=== PATIENT | female | born 1935 | race Caucasian/White ===

== ENCOUNTER → 2017-03-02 | Outpatient (CLI) | payer OTHER, MEDICARE ==
[~2017-03-02] MED LIST: ATEN-173 PO; ATOR-22 PO; CALCTAB7 PO; CLTP PO; ESCI10TA17 PO; FLUT0.15 NAE; INDA1TAB3 PO; LISI-461 PO; LISI10TA PO
--- NOTE | 2017-03-02 16:40 | MAMMOGRAPHY REPORT ---
BILATERAL DIGITAL SCREENING MAMMOGRAM WITH CAD: 03/02/2017 CLINICAL HISTORY: Routine screening. Patient has no complaints. TECHNIQUE: Bilateral CC and MLO views were obtained. Current study was also evaluated with a Comput er Aided Detection (CAD) system. COMPARISON: Comparison is made to exams dated: 02/24/2016 mammogram, 12/09/2009 mammogram, 02/22/2015 mammogram, 12/21/2013 mammogram, 12/01/2004 mammogram - [facility], and 12/02/2006. BREAST COMPOSITION: There are scattered areas of fibroglandular density in both breasts. FINDINGS: There are stable scattered punctate calcifications in both breasts. No new suspicious m ass, architectural distortion or cluster of microcalcifications is seen. IMPRESSION: ACR BI-RADS CATEGORY 2: BENIGN There is no mammographic evidence of malignancy. A 1 year screening mammogram is recommended. The p atient will receive written notification of the results. Approximately 10% of breast cancers are not detected with mammography. A negative mammographic repor t should not delay biopsy if a clinically suggestive mass is present. Brynn Kilpatrick M.D. ay/:03/02/2017 15:44:28 Animal Nutrition Consultant: Yodit DURON(Summer)([place]), [facility] letter sent: Normal 1/2 BI-RADS Code: ACR BI-RADS Category 2: Benign
== END | disposition home or self-care (01) ==
LOC: C.MAMM 11:05
PROVIDERS: ATTEND Internal Medicine
DX: Z12.31 Encounter for screening mammogram for malignant neoplasm of breast (principal)

== ENCOUNTER 2017-06-04 13:42 | Emergency (ER) | payer OTHER, MEDICARE ==
[~2017-06-04] VITALS: Ht 156.2 cm; Wt 52.2 kg
[~2017-06-04 13:42] MED LIST changes: -CALCTAB7 PO; -ESCI10TA17 PO; -FLUT0.15 NAE; -LISI-461 PO; -LISI10TA PO
[2017-06-04 13:58] VITALS: TEMP 36.6; Ht 156.2 cm; Wt 52.2 kg
[2017-06-04] MEDS ORDERED: SODIUM CHLORIDE 0.9% 1000ML 500 ML IV STA (14:47)
[2017-06-04 15:00] LABS: BASO % 0.5 %; BASO ABS # 0.04 K/uL (0-0.2); COMPLETE YES; HEMATOCRIT 39.8 % (37-47); IG% 0.1 %; LYMPH % 26.3 %; LYMPH ABS # 2.07 K/uL (1.2-3.4); MEAN CELL VOLUME 88.4 fL (80-100); MEAN CORPUSCULAR HEMOGLOBIN 28.9 pg (25-34); MEAN CORPUSCULAR HGB CONC 32.7 g/dl (32-36); MEAN PLATELET VOLUME 12.1 fL (7.4-10.4); MONO % 11.5 %; NEUT % 59.6 %; PLATELET COUNT 211 K/uL (130-400); WHITE BLOOD COUNT 7.88 K/uL (4.8-10.8)
[2017-06-04 15:07] LABS: BUN/CREATININE RATIO 21.4 (10-20); CALCIUM 9.2 mg/dl (8.5-10.1); CREATININE 1.1 mg/dl (0.60-1.20); POTASSIUM 3.9 mmol/L (3.5-5.1)
[2017-06-04 15:17] LABS: THYROID STIMULATING HORMONE 0.71 uIu/ml (0.300-4.500)
[2017-06-04] MEDS ORDERED: CALCTAB7 PO (15:22)
[2017-06-04] MEDS ORDERED: ESCI10TA17 PO (15:22)
[2017-06-04] MEDS ORDERED: FLUT0.15 NAE (15:22)
[2017-06-04] MEDS ORDERED: LISINOPRIL 10 MG TAB PO STA (15:31)
[2017-06-04] MEDS ORDERED: LISI10TA PO (16:02)
--- NOTE | 2017-06-04 16:09 | EMERGENCY ROOM VISIT NOTE ---
History Report prepared by Lynn: Mitch Sutton Under the Supervision of: Dr. Vic Thorne M.D. First contact with patient: 14:35 Chief Complaint: HYPERTENSION Stated Complaint: HIGH BLOOD PRESSURE,LOW PULSE,DOCTOR REFERRED History of Present Illness The patient is a 81 year old female who presents to the Emergency Room with complaints of persistent hypertension beginning last week. She states that she was at the ear doctor today who noticed that she had a high blood pressure and a low pulse. She states that she was seen by the ear doctor because she had been having a lot of trouble hearing. Per daughter, the patient was seen by her PCP last week for similar hearing problems and was found to have a systolic pressure of 208. 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 The patient has a history of hypertension and is on is currently on Atenolol. She states that her systolic blood pressure has been in the 150's this past week at home. She also complains of a headache which she describes as "dull". The patient denies any urinary symptoms. Source of History: patient, family (daughter) Onset: Last week Symptom Intensity: systolic pressure of 208 last week, consistently 150's over past week Quality: other (Hypertension) Timing: other (persistent) Associated Symptoms: + headache ("dull"), No urinary symptoms Review of Systems See HPI for pertinent positives & negatives. A total of 10 systems reviewed and were otherwise negative. Past Medical & Surgical Medical Problems: (1) H. pylori infection (2) HTN (hypertension) Surgical Problems: (1) H/O mastoidectomy Family History No pertinent family history stated. Social History Smoking Status: Never Smoker Marital Status: Housing Status: lives with significant other Occupation Status: retired Current/Historical Medications Scheduled Atenolol (Tenormin), 25 MG PO QPM Atorvastatin (Lipitor), 20 MG PO DAILY Calcium Carbonate-Vitamin D W/ (Caltrate 600 Plus), 2 TAB PO DAILY Escitalopram (Lexapro), 5 MG PO DAILY Lisinopril (Prinivil), 10 MG PO QD@08 Scheduled PRN Fluticasone Propionate (Nasal) (Flonase Allergy Relief), 2 SPRAY NICHOLE DAILY PRN for Nasal Congestion Allergies Coded Allergies: Amlodipine (Unverified Allergy, Mild, DIZZY, 1/2/11) Penicillins (Unverified Allergy, Unknown, HIVES, 01/28/16) Propoxyphene (Unverified Allergy, Unknown, nausea, 01/28/16) Physical Exam Vital Signs Date Time Temp Pulse Resp B/P (MAP) Pulse Ox O2 Delivery O2 Flow Rate FiO2 06/04/17 16:42 52 20 189/89 100 06/04/17 16:05 76 20 195/91 100 06/04/17 15:23 56 20 191/80 100 Room Air 06/04/17 14:16 58 06/04/17 13:58 36.6 105 18 205/94 97 Room Air Physical Exam GENERAL: Patient is in no acute distress. HEENT: No acute trauma, normocephalic atraumatic, mucous membranes moist, no nasal congestion, no scleral icterus. NECK: No stridor, no adenopathy, no meningismus, trachea is midline. LUNGS: Clear to auscultation bilaterally, no wheeze, no rhonchi, breath sounds equal. HEART: Without murmurs gallops or rubs, regular rate and rhythm. ABDOMEN: Soft, nontender, bowel sounds positive, no hernias, no peritonitis. EXTREMITIES: No cyanosis or edema, full range of motion of all the joints without pain or difficulty, no signs for acute trauma. NEUROLOGIC: Oriented x 3, no acute motor or sensory deficits, no focal weakness. No pronator drift or cerebellar dysfunction. SKIN: No rash, no jaundice, no diaphoresis. Medical Decision & Procedures Laboratory Results 06/04/17 14:12 Red Blood Count 4.50, Mean Corpuscular Volume 88.4, Mean Corpuscular Hemoglobin 28.9, Mean Corpuscular Hemoglobin Concent 32.7, Mean Platelet Volume 12.1, Neutrophils (%) (Auto) 59.6, Lymphocytes (%) (Auto) 26.3, Monocytes (%) (Auto) 11.5, Eosinophils (%) (Auto) 2.0, Basophils (%) (Auto) 0.5, Neutrophils # (Auto ) 4.69, Lymphocytes # (Auto) 2.07, Monocytes # (Auto) 0.91, Eosinophils # (Auto ) 0.16, Basophils # (Auto) 0.04 06/04/17 14:12 Test 06/04/17 14:12 White Blood Count 7.88 K/uL (4.8-10.8) Red Blood Count 4.50 M/uL (4.2-5.4) Hemoglobin 13.0 g/dL (12.0-16.0) Hematocrit 39.8 % (37-47) Mean Corpuscular Volume 88.4 fL (80-100) Mean Corpuscular Hemoglobin 28.9 pg (25-34) Mean Corpuscular Hemoglobin Concent 32.7 g/dl (32-36) Platelet Count 211 K/uL (130-400) Mean Platelet Volume 12.1 fL (7.4-10.4) Neutrophils (%) (Auto) 59.6 % Lymphocytes (%) (Auto) 26.3 % Monocytes (%) (Auto) 11.5 % Eosinophils (%) (Auto) 2.0 % Basophils (%) (Auto) 0.5 % Neutrophils # (Auto) 4.69 K/uL (1.4-6.5) Lymphocytes # (Auto) 2.07 K/uL (1.2-3.4) Monocytes # (Auto) 0.91 K/uL (0.11-0.59) Eosinophils # (Auto) 0.16 K/uL (0-0.5) Basophils # (Auto) 0.04 K/uL (0-0.2) RDW Standard Deviation 41.9 fL (36.4-46.3) RDW Coefficient of Variation 13.0 % (11.5-14.5) Immature Granulocyte % (Auto) 0.1 % Immature Granulocyte # (Auto) 0.01 K/uL (0.00-0.02) Anion Gap 5.0 mmol/L (3-11) Est Creatinine Clear Calc Drug Dose 31.0 ml/min Estimated GFR () 54.5 Estimated GFR (Non- 47.0 BUN/Creatinine Ratio 21.4 (10-20) Calcium Level 9.2 mg/dl (8.5-10.1) Total Bilirubin 0.5 mg/dl (0.2-1) Aspartate Amino Transf (AST/SGOT) 16 U/L (15-37) Alanine Aminotransferase (ALT/SGPT) 19 U/L (12-78) Alkaline Phosphatase 113 U/L (45-117) Total Protein 7.5 gm/dl (6.4-8.2) Albumin 3.8 gm/dl (3.4-5.0) Globulin 3.7 gm/dl (2.5-4.0) Albumin/Globulin Ratio 1.0 (0.9-2) Thyroid Stimulating Hormone (TSH) 0.710 uIu/ml (0.300-4.500) Laboratory results reviewed by me. Medications Administered Medications (Trade) Dose Ordered Sig/Silas Route Start Time Stop Time Status Last Admin Dose Admin Sodium Chloride 500 ml @ 999 mls/hr Q31M STAT IV 06/04/17 14:47 06/04/17 15:17 DC 06/04/17 14:47 999 MLS/HR Lisinopril (Zestril Tab) 10 mg NOW STAT PO 06/04/17 15:31 06/04/17 15:32 DC 06/04/17 16:04 10 MG ECG Indication: other (Hypertension) Rate (beats per minute): 59 Rhythm: sinus bradycardia Findings: RBBB, other (LVH) ED Course 1436: The patient was evaluated in room C3B. A complete history and physical exam was performed. 1447: Ordered Sodium Chloride 500 ml @ 999 mls/hr IV. 1531: Ordered Zestril Tab10 mg PO. 1557: Reevaluated the patient. Discussed results and discharge instructions: she verbalized understanding and agreement. The patient is ready for discharge. Medical Decision The patient is a 81 year old female who presents to the ED with complaints of hypertension. Differential diagnoses considered include renal failure, thyroid disorder, essential hypertension, dehydration, stress/anxiety, and cardiac ischemia. Blood Pressure Screening: Patient was found to have an elevated blood pressure and was referred to their primary doctor for recheck and further treatment. Medication Reconciliation: I attest that I have personally reviewed the patient' s current medication list. There is no leukocytosis or concerning anemia. No significant electrolyte abnormality, kidney failure, hepatitis. The patient appears to be in a euthyroid state. EKG shows a sinus bradycardia, no acute ischemia. The patient has no complaints, she has a nonfocal neurologic exam. I did discuss her presentation with the primary doctor's office. They suggested either Norvasc or lisinopril in addition to her atenolol. She was given 10 mg of lisinopril here orally as she does have a documented allergy to Norvasc. Patient is being discharged to continue her atenolol, we will add lisinopril. She will monitor her blood pressure at home and see her doctor in a few days for a blood pressure recheck. If things are worsening, she can return. Consults Time Called: 1524 Consulting Physician: Radha Lynn PA-C -Family Medicine Returned Call: [phone] Discussed the patient's case with Radha Lynn PA-C. She recommends that the patient have Lisinopril added on top of her Atenolol. Impression Primary Impression: HTN (hypertension) Scribe Attestation The scribe's documentation has been prepared under my direction and personally reviewed by me in its entirety. I confirm that the note above accurately reflects all work, treatment, procedures, and medical decision making performed by me. Departure Information Dispostion Home / Self-Care Prescriptions Lisinopril (Prinivil) 10 Mg Tab 10 MG PO QD@08, #15 TAB 3 Refills Prov: Vic Thorne M.D. 06/04/17 Referrals Gorge Del Rio M.D. (PCP) Forms HOME CARE DOCUMENTATION FORM, IMPORTANT VISIT INFORMATION, WORK / SCHOOL INSTRUCTIONS Patient Instructions My [facility] [employer] Additional Instructions add Lisinopril daily to help control the blood pressure keep the Atenolol dosing the same see your doctor wednesday for a blood pressure check keep a log of your blood pressure at home
[2017-06-04 16:42] VITALS: BP 189/89; PULSE 52; O2SAT 100
== END 2017-06-04 16:43 | disposition home or self-care (01) ==
LOC: C.EDB 13:43 → C.EDC 16:43
DX: I10 Essential (primary) hypertension (principal); R51 Headache

== ENCOUNTER → 2017-06-23 | Outpatient (CLI) | payer OTHER, MEDICARE ==
[~2017-06-23] MED LIST changes: +CALCTAB7 PO; -CLTP PO; +ESCI10TA17 PO; +FLUT0.15 NAE; -INDA1TAB3 PO; +LISI-461 PO; +LISI10TA PO
[2017-06-23 17:35] LABS: BLOOD UREA NITROGEN 27 mg/dl (7-18); CARBON DIOXIDE 29 mmol/L (21-32); CHLORIDE 107 mmol/L (98-107); GLUCOSE 88 mg/dl (70-99); POTASSIUM 4.2 mmol/L (3.5-5.1); SODIUM 142 mmol/L (136-145)
== END | disposition home or self-care (01) ==
LOC: C.LABBFT 10:27
PROVIDERS: ATTEND Physician Assistant
DX: I10 Essential (primary) hypertension (principal)

== ENCOUNTER → 2017-07-15 | Outpatient (CLI) | payer OTHER, MEDICARE ==
[2017-07-15 17:43] LABS: BLOOD UREA NITROGEN 25 mg/dl (7-18); CALCIUM 8.9 mg/dl (8.5-10.1); CARBON DIOXIDE 28 mmol/L (21-32); CHLORIDE 107 mmol/L (98-107); GLUCOSE 82 mg/dl (70-99); POTASSIUM 4.2 mmol/L (3.5-5.1); SODIUM 139 mmol/L (136-145)
== END | disposition home or self-care (01) ==
LOC: C.LABBFT 11:06
PROVIDERS: ATTEND Physician Assistant
DX: Z00.00 Encounter for general adult medical examination without abnormal findings (principal); I10 Essential (primary) hypertension

== ENCOUNTER → 2017-07-23 | Outpatient (CLI) | payer OTHER, MEDICARE ==
[2017-07-23 14:15] LABS: ALT/SGPT 19 U/L (12-78); AST/SGOT 13 U/L (15-37); BLOOD UREA NITROGEN 23 mg/dl (7-18); BUN/CREATININE RATIO 19.6 (10-20); CALCIUM 8.9 mg/dl (8.5-10.1); CARBON DIOXIDE 27 mmol/L (21-32); CHLORIDE 105 mmol/L (98-107); GLUCOSE 93 mg/dl (70-99); POTASSIUM 4.2 mmol/L (3.5-5.1); SODIUM 139 mmol/L (136-145); TRIGLYCERIDES 97 mg/dl (0-150); VERY LOW DENSITY LIPOPROT CALC 19 mg/dl
[2017-07-23 14:26] LABS: ALKALINE PHOSPHATASE 111 U/L (45-117); CHOLESTEROL 145 mg/dl (0-200); CHOLESTEROL/HDL RATIO 1.9; HDL CHOLESTEROL 75 mg/dl; LDL CHOLESTEROL CALCULATED 51 mg/dl; THYROID STIMULATING HORMONE 0.672 uIu/ml (0.300-4.500)
== END | disposition home or self-care (01) ==
LOC: C.LABBC 11:44
PROVIDERS: ATTEND Internal Medicine
DX: M85.80 Other specified disorders of bone density and structure, unspecified site (principal)

== ENCOUNTER 2017-09-09 09:45 | Emergency (ER) | payer OTHER, MEDICARE ==
[~2017-09-09] VITALS: Ht 154.9 cm; Wt 50.0 kg
[~2017-09-09 09:45] MED LIST changes: -LISI-461 PO
[2017-09-09 09:52] VITALS: TEMP 37.1; Ht 154.9 cm; Wt 50.0 kg
[2017-09-09] MEDS ORDERED: LISI-461 PO (10:15)
[2017-09-09 10:20] VITALS: O2SAT 100
[2017-09-09 10:46] LABS: URINE APPEARANCE CLOUDY (CLEAR); URINE BILIRUBIN NEG (NEG); URINE COLOR YELLOW; URINE EPITHELIAL CELL AUTO >30 /lpf (0-5); URINE NITRITE NEG (NEG); URINE SPECIFIC GRAVITY 1.013 (1.000-1.030); UROBILINOGEN NEG (NEG)
[2017-09-09 10:51] LABS: MANUAL MICROSCOPIC REQUIRED? NO; REVIEW REQ? YES
--- NOTE | 2017-09-09 10:51 | DIAGNOSTIC IMAGING REPORT ---
CHEST ONE VIEW PORTABLE HISTORY: severe hypertension COMPARISON: Chest 09/15/2011. FINDINGS: The lungs are clear. Cardiac silhouette is normal in size. No pleural effusions. No pneumothorax. IMPRESSION: No acute process. Electronically signed by: Mitchel Crane M.D. 09/09/2017 10:50 AM Dictated Date/Time: 09/09/2017 10:49 AM
[2017-09-09 11:02] LABS: BASO % 0.3 %; BASO ABS # 0.02 K/uL (0-0.2); COMPLETE YES; EOS % 0.7 %; HEMATOCRIT 39.1 % (37-47); IG% 0.1 %; LYMPH % 11.7 %; MEAN CELL VOLUME 87.3 fL (80-100); MEAN CORPUSCULAR HEMOGLOBIN 28.3 pg (25-34); MEAN CORPUSCULAR HGB CONC 32.5 g/dl (32-36); MEAN PLATELET VOLUME 11.9 fL (7.4-10.4); MONO % 11.6 %; NEUT % 75.6 %; PLATELET COUNT 167 K/uL (130-400); RED BLOOD COUNT 4.48 M/uL (4.2-5.4); WHITE BLOOD COUNT 7.69 K/uL (4.8-10.8)
[2017-09-09 11:21] LABS: ALT/SGPT 17 U/L (12-78); AST/SGOT 13 U/L (15-37); BLOOD UREA NITROGEN 18 mg/dl (7-18); BUN/CREATININE RATIO 16.4 (10-20); CALCIUM 8.6 mg/dl (8.5-10.1); CARBON DIOXIDE 26 mmol/L (21-32); CHLORIDE 107 mmol/L (98-107); GLUCOSE 94 mg/dl (70-99); POTASSIUM 4.1 mmol/L (3.5-5.1); SODIUM 140 mmol/L (136-145)
[2017-09-09 11:32] LABS: ALKALINE PHOSPHATASE 111 U/L (45-117); THYROID STIMULATING HORMONE 0.782 uIu/ml (0.300-4.500)
--- NOTE | 2017-09-09 12:06 | EMERGENCY ROOM VISIT NOTE ---
History Report prepared by Lynn: Kerwin Velasco Under the Supervision of: Dr. Jamie Vee M.D. First contact with patient: 10:17 Chief Complaint: HYPERTENSION Stated Complaint: HIGH BLOOD PRESSURE OVER 200 History of Present Illness The patient is an 82 year old female with a history of hypertension who presents to the Emergency Room with complaints of persistent high blood pressure that started this morning. Her blood pressure was noted to be over 200 prior to arrival. She has been treated for hypertension for years, and her primary care physician is Dr. Del Rio. The patient states that she feels okay, but her a week ago. She notes that she was recently started on Lisinopril, which has given her a cough and raspy voice. The patient says that she still is taking it as well as her other medications. She has not missed any medications recently. Per the patient's daughter, the patient's mother of an aneurysm, and her father had a stroke history. Pt denies LOC, headache, fevers, chills, diaphoresis, visual changes, neck pain, chest pain, breathing difficulties, nausea, vomiting, abdominal pain, back pain, melena, hematochezia, urinary symptoms, numbness, weakness, lymphadenopathy, rash, or other complaints. Source of History: patient, family Onset: This morning Position: other (global - hypertension) Symptom Intensity: over 200 Timing: other (persistent) Note: Associated symptoms: Feels okay, but a week ago. Review of Systems See HPI for pertinent positives and negatives. A total of ten systems were reviewed and were otherwise negative. Past Medical & Surgical Medical Problems: (1) H. pylori infection (2) HTN (hypertension) Surgical Problems: (1) H/O mastoidectomy Family History FHx: aneurysm Stroke Social History Smoking Status: Never Smoker Marital Status: Housing Status: lives with significant other Occupation Status: retired Current/Historical Medications Scheduled Atenolol (Tenormin), 25 MG PO QPM Atorvastatin (Lipitor), 20 MG PO DAILY Calcium Carbonate-Vitamin D W/ (Caltrate 600 Plus), 2 TAB PO DAILY Escitalopram (Lexapro), 0.5 TAB PO DAILY Lisinopril (Zestril), 1.5 TAB PO DAILY Scheduled PRN Fluticasone Propionate (Nasal) (Flonase Allergy Relief), 2 SPRAY NICHOLE DAILY PRN for Nasal Congestion Allergies Coded Allergies: Amlodipine (Unverified Allergy, Mild, DIZZY, 09/09/17) Penicillins (Unverified Allergy, Unknown, HIVES, 09/09/17) Propoxyphene (Unverified Allergy, Unknown, nausea, 09/09/17) Oxycodone (Unverified Adverse Reaction, Severe, "TREMORS", 09/09/17) Tramadol (Unverified Adverse Reaction, Severe, "JITTERY", 09/09/17) Acetaminophen (Unverified Adverse Reaction, Unknown, ., 09/09/17) Clarithromycin (Unverified Adverse Reaction, Unknown, "BAD TASTE IN MOUTH ", 09/09/17) Physical Exam Vital Signs Date Time Temp Pulse Resp B/P (MAP) Pulse Ox O2 Delivery O2 Flow Rate FiO2 09/09/17 12:23 53 20 158/81 98 Room Air 09/09/17 11:13 55 18 208/85 100 Room Air 09/09/17 10:20 100 Room Air 09/09/17 10:20 100 Room Air 09/09/17 10:19 51 09/09/17 10:13 54 18 184/93 100 Room Air 09/09/17 09:52 37.1 61 20 192/94 98 Room Air Physical Exam GENERAL: Awake, alert, well appearing, no distress HENT: Normocephalic, atraumatic. TM's normal. Oropharynx unremarkable. EYES: PERRL. EOMI. Normal conjunctiva. Sclera non-icteric. NECK: Supple. No nuchal rigidity. FROM. No JVD or bruit. RESPIRATORY: CTA CARDIAC: RRR. No murmur. ABDOMEN: Soft, non distended. No tenderness to palpation. No rebound or guarding. No masses. RECTAL: Deferred. MUSCULOSKELETAL: Unremarkable. No edema. No discoloration. Gross motor strength symmetric. NEURO: Cranial nerves 2-12 grossly intact. Normal sensorium. No sensory or motor deficits noted. Speech normal. No pronator drift. SKIN: No rash or jaundice noted. LYMPH: No adenopathy. Medical Decision & Procedures ER Provider Diagnostic Interpretation: X-ray: Per my interpretation, radiologist review. CHEST ONE VIEW PORTABLE HISTORY: severe hypertension COMPARISON: Chest 09/15/2011. FINDINGS: The lungs are clear. Cardiac silhouette is normal in size. No pleural effusions. No pneumothorax. IMPRESSION: No acute process. Electronically signed by: Mitchel Crane M.D. 09/09/2017 10:50 AM Dictated Date/Time: 09/09/2017 10:49 AM Laboratory Results 09/09/17 10:50 Red Blood Count 4.48, Mean Corpuscular Volume 87.3, Mean Corpuscular Hemoglobin 28.3, Mean Corpuscular Hemoglobin Concent 32.5, Mean Platelet Volume 11.9, Neutrophils (%) (Auto) 75.6, Lymphocytes (%) (Auto) 11.7, Monocytes (%) (Auto) 11.6, Eosinophils (%) (Auto) 0.7, Basophils (%) (Auto) 0.3, Neutrophils # (Auto ) 5.82, Lymphocytes # (Auto) 0.90, Monocytes # (Auto) 0.89, Eosinophils # (Auto ) 0.05, Basophils # (Auto) 0.02 09/09/17 10:50 Test 09/09/17 10:34 09/09/17 10:50 Urine Color YELLOW Urine Appearance CLOUDY (CLEAR) Urine pH 6.0 (4.5-7.5) Urine Specific [place] 1.013 (1.000-1.030) Urine Protein TRACE (NEG) Urine Glucose (UA) NEG (NEG) Urine Ketones NEG (NEG) Urine Occult Blood TRACE (NEG) Urine Nitrite NEG (NEG) Urine Bilirubin NEG (NEG) Urine Urobilinogen NEG (NEG) Urine Leukocyte Esterase SMALL (NEG) Urine WBC (Auto) 5-10 /hpf (0-5) Urine RBC (Auto) 0-4 /hpf (0-4) Urine Hyaline Casts (Auto) /lpf (0-5) Urine Epithelial Cells (Auto) >30 /lpf (0-5) Urine Bacteria (Auto) NEG (NEG) Urine Pathogenic Casts /lpf (0) White Blood Count 7.69 K/uL (4.8-10.8) Red Blood Count 4.48 M/uL (4.2-5.4) Hemoglobin 12.7 g/dL (12.0-16.0) Hematocrit 39.1 % (37-47) Mean Corpuscular Volume 87.3 fL (80-100) Mean Corpuscular Hemoglobin 28.3 pg (25-34) Mean Corpuscular Hemoglobin Concent 32.5 g/dl (32-36) Platelet Count 167 K/uL (130-400) Mean Platelet Volume 11.9 fL (7.4-10.4) Neutrophils (%) (Auto) 75.6 % Lymphocytes (%) (Auto) 11.7 % Monocytes (%) (Auto) 11.6 % Eosinophils (%) (Auto) 0.7 % Basophils (%) (Auto) 0.3 % Neutrophils # (Auto) 5.82 K/uL (1.4-6.5) Lymphocytes # (Auto) 0.90 K/uL (1.2-3.4) Monocytes # (Auto) 0.89 K/uL (0.11-0.59) Eosinophils # (Auto) 0.05 K/uL (0-0.5) Basophils # (Auto) 0.02 K/uL (0-0.2) RDW Standard Deviation 41.6 fL (36.4-46.3) RDW Coefficient of Variation 12.9 % (11.5-14.5) Immature Granulocyte % (Auto) 0.1 % Immature Granulocyte # (Auto) 0.01 K/uL (0.00-0.02) Prothrombin Time 11.0 SECONDS (9.0-12.0) Prothromb Time International Ratio 1.0 (0.9-1.1) Activated Partial Thromboplast Time 25.0 SECONDS (21.0-31.0) Partial Thromboplastin Ratio 1.0 Anion Gap 7.0 mmol/L (3-11) Est Creatinine Clear Calc Drug Dose 29.7 ml/min Estimated GFR () 54.1 Estimated GFR (Non- 46.7 BUN/Creatinine Ratio 16.4 (10-20) Calcium Level 8.6 mg/dl (8.5-10.1) Total Bilirubin 0.6 mg/dl (0.2-1) Direct Bilirubin 0.1 mg/dl (0-0.2) Aspartate Amino Transf (AST/SGOT) 13 U/L (15-37) Alanine Aminotransferase (ALT/SGPT) 17 U/L (12-78) Alkaline Phosphatase 111 U/L (45-117) Troponin I < 0.015 ng/ml (0-0.045) Total Protein 7.3 gm/dl (6.4-8.2) Albumin 3.8 gm/dl (3.4-5.0) Lipase 174 U/L (73-393) Thyroid Stimulating Hormone (TSH) 0.782 uIu/ml (0.300-4.500) Laboratory results reviewed by me ECG Indication: other (hypertension) Rate (beats per minute): 54 Rhythm: sinus bradycardia Findings: LAFB, RBBB, no acute ischemic change, other (LVH) ED Course 1028: The patient was evaluated in room B7. A complete history and physical exam was performed. 1123: I reevaluated the patient and she is asymptomatic. 1218: I reevaluated the patient and her blood pressure is better without any intervention, and says that she feels well. She will follow-up with her family doctor. The patient verbally expressed understanding and agreement of the treatment plan. The patient will be discharged. Medical Decision Prior records/ancillary studies reviewed regarding the history above. Triage Nursing notes reviewed and agree them. Additional history obtained from the family. The patient's history was concerning for hypertension. Differential diagnosis: Etiologies such as hypertensive urgency, hypertensive emergency, benign hypertension, cardiovascular pathology, pheochromocytoma, electrolyte abnormality, renal disease, endorgan damage, as well as others were entertained. Physical examination: As above. ER treatment provided: [] On reassessment the patient felt better. Diagnostic interpretation by me: The electrocardiogram was negative for pathologic change. The labs revealed an unremarkable CBC and chemistry panel. No sign of UTI on urinalysis. Cardiac markers negative. Imaging studies: Chest x-ray as above On reassessment the patient's blood pressure was much improved. She is asymptomatic. I discussed conservative management. The patient's family would like to set up the appointment with her primary physician as their schedule is challenging. The patient feels very comfortable with this. She will continue her medications. If she worsens in any way she will come back to the emergency department. By the evaluation outlined above emergent etiologies such as hypertensive emergency, pheochromocytoma, endorgan damage, cardiac ischemia, aortic dissection, pulmonary embolism, pneumonia, pneumothorax, infections, gastrointestinal, as well as others were deemed relatively unlikely. The patient and family were informed about the findings as listed above. All questions were answered and they were pleased with the treatment. Return instructions were outlined and the patient was discharged in stable condition. Outpatient prescription management: no change Referral: The patient was referred back to her primary care physician for follow-up in 2 to 3 days for a recheck of the current condition. Medication Reconcilliation Current Medication List: was personally reviewed by me Blood Pressure Screening Patient's blood pressure: Elevated blood pressure Blood pressure disposition: Referred to PCP Impression Primary Impression: HTN (hypertension) Scribe Attestation The scribe's documentation has been prepared under my direction and personally reviewed by me in its entirety. I confirm that the note above accurately reflects all work, treatment, procedures, and medical decision making performed by me. Departure Information Dispostion Home / Self-Care Referrals Gorge Del Rio M.D. (PCP) Forms HOME CARE DOCUMENTATION FORM, IMPORTANT VISIT INFORMATION, WORK / SCHOOL INSTRUCTIONS Patient Instructions My [facility] Additional Instructions Continue current medications. Follow-up with your primary physician as discussed. Return to the ER for chest pain, difficulty breathing, fevers, vomiting, worsening of your condition, or as needed.
[2017-09-09 12:23] VITALS: BP 158/81; PULSE 53; O2SAT 98
== END 2017-09-09 13:05 | disposition home or self-care (01) ==
LOC: C.EDB 09:47
DX: I10 Essential (primary) hypertension (principal); Z86.19 Personal history of other infectious and parasitic diseases; Z98.890 Other specified postprocedural states; Z79.899 Other long term (current) drug therapy; Z88.0 Allergy status to penicillin; Z88.6 Allergy status to analgesic agent; Z88.8 Allergy status to other drugs, medicaments and biological substances; Z82.3 Family history of stroke

== ENCOUNTER → 2017-10-12 | Outpatient (CLI) | payer OTHER, MEDICARE ==
[~2017-10-12] MED LIST changes: +LISI-461 PO; -LISI10TA PO
[2017-10-12 17:34] LABS: BLOOD UREA NITROGEN 29 mg/dl (7-18); BUN/CREATININE RATIO 23.5 (10-20); CALCIUM 9.1 mg/dl (8.5-10.1); CARBON DIOXIDE 31 mmol/L (21-32); CHLORIDE 101 mmol/L (98-107); CREATININE 1.25 mg/dl (0.60-1.20); GLUCOSE 102 mg/dl (70-99); POTASSIUM 3.5 mmol/L (3.5-5.1); SODIUM 139 mmol/L (136-145)
== END | disposition home or self-care (01) ==
LOC: C.LABBFT 12:29
PROVIDERS: ATTEND Physician Assistant
DX: I10 Essential (primary) hypertension (principal)